=== PATIENT | male | born 1990 ===

== ENCOUNTER 2024-10-04 21:32 | Emergency (ER) | payer OTHER ==
[~2024-10-04] VITALS: Ht 170.2 cm; Wt 72.6 kg
[2024-10-04 21:39] VITALS: BP 124/73
[2024-10-07 19:08] LABS: HIV 1,2 COMBO ANTIGEN/ANTIBODY Negative (Negative)
[2024-10-07 19:54] LABS: HEPATITIS B SURFACE ANTIBODY 445.3 IU/L
[2024-10-07 20:51] LABS: HEPATITIS C AB CIA INTERP Negative (Negative); HEPATITIS C ANTIBODY CIA INDEX 0.07 IV
== END 2024-10-04 21:45 | disposition home or self-care (01) ==
LOC: ER 21:32
PROVIDERS: Student in an Organized Health Care Education/Training Program
DX: T14.8XXA Other injury of unspecified body region, initial encounter (principal); Z77.21 Contact with and (suspected) exposure to potentially hazardous body fluids; W46.1XXA Contact with contaminated hypodermic needle, initial encounter
CPT/HCPCS: 84460